=== PATIENT | male | born 1970 | race Caucasian/White ===

== ENCOUNTER → 2017-05-23 08:20 | Outpatient (CLI) | payer BC, SELFPAY | PROVIDERS: Family Provider Family Medicine; PCP Family Medicine; Visit Provider Family Medicine | DX: L02.415 Cutaneous abscess of right lower limb (principal); Z86.14 Personal history of Methicillin resistant Staphylococcus aureus infection | CPT/HCPCS: 87070; 87077; 87186; 87205 ==

== ENCOUNTER 2023-03-25 07:27 | Day surgery (SDC) | payer BC, SELFPAY ==
--- OUTSIDE RECORDS SUMMARY | 2023-03-25 07:32 | XMS RPT_ITS | CCD ---
Author Name Unknown Address [address] [place] [address] Organization [facility] Care Team Providers Care Oral Surgeon Name Role Phone Jayne COELLO, Minda Guido Unavailable Unavailable Jayne COELLO, Minda Guido Unavailable Unavailable Roof PAINT STOCK CLERK, Alexandre Bernard Unavailable Yesenia Mccormick Unavailable Unavailable Melquiades Byers Unavailable Unavailable Ivanauskas, Saulius Unavailable Unavailable Elinor, Saulius Unavailable Unavailable Ty Tierney Unavailable Unavailable Ty Tierney Unavailable Unavailable Zeeshan Melquiades A Unavailable Unavailable Allergies Allergy Classification Reported Allergen(s) Allergy Type Date of Onset Reaction(s) Facility (4 sources) bee pollen; Translations: [POLLEN] allergy to substance 5 nasal stuffiness [facility] Work Phone: (1 source) No Known Medication Allergies; Translations: [No Known Medication Allergies] Propensity to adverse reactions to drug (disorder) [facility] Repository Medications Completed/Discontinued Medications Medication Drug Class(es) Dates Sig (Normalized) Sig (Original) ASPIRIN-ACETAMINO PHEN-CAFFEINE (4 sources) Nonsteroidal Anti-inflammatory Drug, Central Nervous System Stimulant, Methylxanthine Start: 06-30-2014 EXCEDRIN MIGRAINE 250-250-65 MG TABS As needed ASPIRIN-ACETAMINOP HEN-CAFFEINE [id number] Minda Godoy RN Problems Problem Classification Problem Date Documented Date Episodic/Chronic Nonspecific chest pain (4 sources) Chest pain, unspecified; Translations: [Chest pain, unspecified] Onset: 06-30-2014 06-30-2014 Episodic Other circulatory disease (4 sources) Electrocardiogram abnormal; Translations: [Abnormal electrocardiogram [ECG] [EKG]] Onset: 06-30-2014 06-30-2014 Episodic Other nutritional; endocrine; and metabolic disorders (4 sources) Body mass index (BMI) 26.0-26.9, adult; Translations: [Body mass index (BMI) 26.0-26.9, adult] Onset: 06-30-2014 06-30-2014 Episodic Unclassified (8 sources) Family history of sudden ; Translations: [Family history of ischemic heart disease and other diseases of the circulatory system] 06-30-2014 Episodic Results Test Name Value Interpretation Reference Range Facil ity Vital Signs Date Time Vital Sign Value Performing Clinician Vin lity 10-12-2016 08:03-0400 BMI (Body Mass Index) 26.25 kg/m2 Alexandre Bashir OROPE[facility] Work Phone: 10-12-2016 08:03-0400 BP Diastolic 70 mm[Hg] Alexandre Bashir OROPEZA [facility] Work Phone: 10-12-2016 08:03-0400 BP Systolic 110 mm[Hg] Alexandre Bashir OROPEZA [facility] Work Phone: 10-12-2016 08:03-0400 Height 182.88 cm Alexandre Bashir OROPEZA [facility] Work Phone: 10-12-2016 08:03-0400 Pulse (Heart Rate) 64 /min Alexandre Bashir OROPEZA [facility] Work Phone: 10-12-2016 08:03-0400 Respiratory Rate 20 /min Alexandre Bashir OROPEZA [facility] Work Phone: 10-12-2016 08:03-0400 Weight 87.82 kg Alexandre Bashir PAINT STOCK CLERK [facility] Work Phone: 06-30-2014 14:25-0400 BMI (Body Mass Index) 26.53 kg/m2 Yesenia DeFinolga [facility] Work Phone: 06-30-2014 14:25-0400 BP Diastolic 60 mm[Hg] Harumi DeFinis [facility] Work Phone: 06-30-2014 14:25-0400 BP Systolic 100 mm[Hg] Harumi DeFinis [facility] Work Phone: 06-30-2014 14:250400 BSA (Body Surface Area) 2.11 m2 [facility] Work Phone: 06-30-2014 14:25-0400 Height 182.88 cm Tapad [facility] Work Phone: 06-30-2014 14:25-0400 Pulse (Heart Rate) 64 /min HarAras [facility] Work Phone: 06-30-2014 14:25-0400 Respiratory Rate 20 /min HarAras [facility] Work Phone: 06-30-2014 14:25-0400 Weight 88.72 kg [facility] Work Phone: Encounters Encounter Date Encounter Type Care Provider Facility Start: 12-10-2016 End: 01-21-2017 Ambulatory Ty Tierney Facility:[facility] Start: 09-19-2016 End: 09-19-2016 Emergency department patient visit Melquiades Byers Facility:[facility] Procedures Date Procedure Procedure Detail Performing Clinician Start: 10-12-2016 End: 10-19-2016 Nuclear stress test -exercise Alexandre Camejo NP Work Phone: Start: 06-30-2014 End: 07-01-2014 Documentation of current medications Miguel Tran MD Start: 06-30-2014 End: 06-30-2014 Follow Up Appt Other Miguel Tran MD Start: 06-30-2014 End: 07-13-2014 Stress Echocardiogram (treadmill) Miguel Tran MD Plan of Treatment Date Care Activity Detail Author Start: 10-12-2016 End: 10-12-2016 Appointment Appointment [facility] Work Phone: Start: 10-12-2016 End: 10-12-2016 Nuclear stress test -exercise Nuclear stress test -exercise [facility] Work Phone: Start: 06-30-2014 End: 06-30-2014 Follow Up Appt Other Follow Up Appt Other [facility] Work Phone: Start: 06-30-2014 End: 06-30-2014 Stress Echocardiogram (treadmill) Stress Echocardiogram (treadmill) [facility] Work Phone: Payers Date Payer Category Payer Unknown Summary Purpose Family History No Family History Records FoundNo Family History Records Found Advance Directives No Advanced Directives Records FoundNo Advanced Directives Records Found Additional Source Comments (unrecognized sect ion and content) No Status Records FoundNo Status Records Found INFORMATION SOURCE (unrecogn ized section and content) DATE CREATED AUTHOR AUTHOR'S ORGANIZ ATION 01/11/2021 [facility] FOR RECORDS PERTAINING TO PATIENTS WHO ARE OR HAVE BEEN ENROLLED IN A CHEMICAL DEPENDENCY/SUBSTANCEABUSE PROGRAM, SOME INFORMATION MAY BE OMITTED. This clinical summary was aggregated from multiple sources. Caution should be exercised in using it in the provision of clinical care. This summary normalizes information from multiple sources, and as a consequence, information in this document may materially change the coding, format and clinical context of patient data. In addition, data may be omitted in some cases. CLINICAL DECISIONS SHOULD BE BASED ON THE PRIMARY CLINICAL RECORDS. [facility]. provides no warranty or guarantee of the accuracy or completeness of information in this document.
[2023-03-25 07:47] VITALS: BP 114/87; PULSE 72; RESP 18; TEMP 36.3; O2SAT 97; BMI 26.7
[2023-03-25] MEDS: Lactated Ringers 1,000 ML 15 ML IV (07:59)
--- NOTE | 2023-03-25 08:01 | PCM.HP.STD ---
[facility] - General General Date of Admission: 03/25/23 Date of Service: 03/25/23 Chief Complaint: Screening colonoscopy [facility] Narrative ALYSIA TIERNEY, is a 52 M who presents today for screening colonoscopy. He has not had abdominal pain. He does not have any chest pain or shortness of breath. He has never had a colonoscopy in the past. He has no specific past medical history does not take any medicines on a daily basis. He has no family history of colon cancer or colon polyps. FORMERLY [facility], 1928–1983 Medical History (Updated 03/21/23 @ 09:52 by Connie Skinner) Alcohol use Former smoker History of echocardiogram History of stress test Wears glasses Home Medications NK 01/03/23 [History Last Taken Unknown] Allergy/AdvReac Type Severity Reaction Status Date / Time No Known Allergies Allergy Verified 03/25/23 07:46 Surgical History (Updated 03/21/23 @ 09:52 by Connie Skinner) Hx of vasectomy Social History household members: spouse current occupational status: employed Smoking Status: Former smoker ROS Review of Systems ROS Unobtainable: other Constitutional Constitutional: Denies fatigue, fever(s), poor appetite, weight gain or weight loss ENT HEENT: Denies mouth lesions Cardiovascular Cardiovascular: Denies abdominal bloating, abdominal edema or abdominal pain Respiratory/Chest Respiratory/Chest: Denies change in mental status, change in phlegm color, chest congestion or chest tightness Gastrointestinal Gastrointestinal: Denies belching, bloating, change in bowel habits, change in stool character, chewing difficulty, coffee ground emesis, constipation, cramping, diarrhea, dyspepsia, dysphagia, early satiety, excessive flatus, fecal incontinence, heartburn, hematemesis, hematochezia, hemorrhoids, loose stools, melena, nausea, odynophagia, rectal bleeding, tenesmus, vomiting or weight changes Genitourinary Genitourinary: Denies abdominal discomfort, burning urination or itching Musculoskeletal Musculoskeletal: Reports as per HPI; Denies muscle weakness or myalgias Integumentary Integumentary: Denies jaundice Neurologic Neurologic: Denies lack of coordination or weakness Psychiatric Psychiatric: Denies confusion, depression, memory loss, mood swings, paranoia or suicidal ideation Endocrine Endocrinology: Denies systems reviewed and no addt'l complaints, except as documented Hematologic/Lymphatic Hematologic/Lymphatic: Denies anemia, easy bleeding, easy bruising or lymphadenopathy Allergic/Immunologic Allergic/Immunologic: Denies systems reviewed and no addt'l complaints, except as documented Vital Signs Vital Signs Vital Signs: 03/25/23 07:47 03/25/23 07:47 Temperature 97.3 F L Temperature Source Temporal Pulse Rate 72 Respiratory Rate 18 Respiratory Pattern Normal Blood Pressure 114/87 H Blood Pressure Mean 96 Blood Pressure Source Monitor Blood Pressure Position Semi-Fowlers Blood Pressure Location Right Arm Pulse Ox 97 Oxygen Delivery Method Room Air Weight Weight: 191 lb 9.307 oz Body Mass Index (BMI) 26.7 Physical Exam Const alert General Appearance: cooperative Orientation / Consciousness: oriented to person HEENT hearing grossly normal bilaterally Head and Scalp: normal to inspection Face and Sinus: face symmetric Nose: external nose normal Mouth: oral and palatal mucosa normal Eyes conjunctivae normal General Eye: normal appearance of both eyes Neck full ROM General: normal visual inspection Lymph Lymphatic: no lymphadenopathy noted Chest inspection of chest normal and palpation of chest normal Chest: symmetrical chest wall rise Resp normal respiratory effort Effort and Inspection: able to speak in complete sentences Cardio regular rate GI non-distended Percussion: normal to percussion Rectal Exam: deferred Neuro Speech: speech normal Gait (Neuro): normal gait Assessment & Plan Assessment/Plan (1) Encounter for screening for malignant neoplasm of colon: PLAN: He was explained alternatives, risk, benefits including not withstanding bleeding, infection, sepsis, perforation, need for emergent urgent . He will have an ASA of 2.
--- NOTE | 2023-03-25 08:30 | COLBX_PTH ---
PATHOLOGY RESULTS PATIENT: ALYSIA TIERNEY LOC: EN U#:[id number] AGE/SX: 52/M ROOM: RE03/25/[address]: Dr. Oziel Jason DO : 1970 BED: DIS: 03/25/2023 SPEC #: [id number] RECD: 03/25/23 11:49 STATUS: JOSE ANGEL #: [id number] MANFRED: 03/25/23 08:[address]: Oziel Jason DEPT: SURGICAL PATHOLOGY RECD BY: Jossie Man ENTERED: 03/25/23 11:49 SP TYPE: COLON BX OTHR DR: Dr. Melquiades Byers MD Tissues: Sigmoid colon biopsy Procedures: Surgery Specimen Level IV HEADER OPERATION: Colonoscopy - open access with polypectomy PRE-OP DIAGNOSIS: Screening TISSUE SUBMITTED: Sigmoid polyp MICROSCOPIC DIAGNOSIS Sigmoid colon polyp, biopsy: Fragments of tubular adenoma. AM:edmond 03/26/2023 MICROSCOPIC DESCRIPTION Slides are reviewed. GROSS DESCRIPTION Received in fixative is one container labeled with the patient's name and designated sigmoid polyp. The specimen consists of two irregular fragments of light coyle soft tissue that in aggregate measure 0.5 x 0.3 x 0.1 cm. The specimen is totally submitted in one cassette. / SJ:edmond 03/25/2023 TC:5 CPT: 27261
[2023-03-25 09:20] VITALS: BP 107/53; BP 114/87; PULSE 71; RESP 18; TEMP 36.2; O2SAT 97
--- NOTE | 2023-03-25 09:21 | OP.CCLET_ITS ---
03/25/2023 Melquiades Byers [address] [place] [address] Re : Colonoscopy procedure for Cosmo Saravia Dear Dr. Byers This procedure was performed on Saturday, March 25, 2023. My impressions and recommendations are as follows: Impressions : - One 8 mm polyp in the sigmoid colon, removed with a hot snare. Resected and retrieved. - The examination was otherwise normal on direct and retroflexion views. Recommendations : - Discharge patient to home. - Resume previous diet. - Continue present medications. - Await pathology results. - Repeat colonoscopy in 5 years for surveillance. My findings are described in the full procedure note, which is enclosed. If I can be of further assistance, please feel free to contact me at . Sincerely, Oziel Friend, 03/25/2023 9:20:26 AM This report has been signed electronically.
--- NOTE | 2023-03-25 09:21 | OP.COLON_ITS ---
Patient Name: Cosmo Saravia Procedure Date: 03/25/2023 7:28 AM Date of : 1970 Age: 52 Procedure: Colonoscopy Indications: Screening for colorectal malignant neoplasm Providers: Oziel Jason DO Medicines: Monitored Anesthesia Care Patient Profile: This is a 52 year old male. Refer to note in patient chart for documentation of history and physical. Last Colonoscopy: none. The patient's first colonoscopy is today. Complications: No immediate complications. Procedure: Pre-Anesthesia Assessment: - Prior to the procedure, a History and Physical was performed, and patient medications and allergies were reviewed. The patient is competent. The risks and benefits of the procedure and the sedation options and risks were discussed with the patient. All questions were answered and informed consent was obtained. Patient identification and proposed procedure were verified by the physician in the pre-procedure area. Mental Status Examination: alert and oriented. Airway Examination: normal oropharyngeal airway and neck mobility. Respiratory Examination: clear to auscultation. CV Examination: normal. Prophylactic Antibiotics: The patient does not require prophylactic antibiotics. Prior Anticoagulants: The patient has taken no anticoagulant or antiplatelet agents. ASA Grade Assessment: II - A patient with mild systemic disease. After reviewing the risks and benefits, the patient was deemed in satisfactory condition to undergo the procedure. The anesthesia plan was to use monitored anesthesia care (MAC). Immediately prior to administration of medications, the patient was re-assessed for adequacy to receive sedatives. The heart rate, respiratory rate, oxygen saturations, blood pressure, adequacy of pulmonary ventilation, and response to care were monitored throughout the procedure. The physical status of the patient was re-assessed after the procedure. After I obtained informed consent, the scope was passed under direct vision. Throughout the procedure, the patient's blood pressure, pulse, and oxygen saturations were monitored continuously. The Colonoscope was introduced through the anus and advanced to the cecum, identified by appendiceal orifice and ileocecal valve. The colonoscopy was performed without difficulty. The patient tolerated the procedure well. The quality of the bowel preparation was adequate. The ileocecal valve, appendiceal orifice, and rectum were photographed. Scope In: 9:00:55 AM Scope Withdrawal Time 0 hours 10 minutes 22 seconds Scope Out: 9:14:13 AM Total Procedure Duration Time 0 hours 13 minutes 18 seconds Findings: The perianal and digital rectal examinations were normal. An 8 mm polyp was found in the sigmoid colon. The polyp was sessile. The polyp was removed with a hot snare. Resection and retrieval were complete. Verification of patient identification for the specimen was done. Estimated blood loss was minimal. The exam was otherwise without abnormality on direct and retroflexion views. Impression: - One 8 mm polyp in the sigmoid colon, removed with a hot snare. Resected and retrieved. - The examination was otherwise normal on direct and retroflexion views. Recommendation: - Discharge patient to home. - Resume previous diet. - Continue present medications. - Await pathology results. - Repeat colonoscopy in 5 years for surveillance. Procedure Code(s): --- Professional --- 40271, Colonoscopy, flexible; with removal of tumor(s), polyp(s), or other lesion(s) by snare technique CPT copyright 2021 [employer]. All rights reserved. The codes documented in this report are preliminary and upon oncology specialist review may be revised to meet current compliance requirements. Oziel Jason DO 03/25/2023 9:20:26 AM This report has been signed electronically. Number of Addenda: 0 Note Initiated On: 03/25/2023 7:28 AM
[2023-03-25 09:25] VITALS: BP 108/79; BP 114/87; PULSE 72; RESP 18; O2SAT 9
[2023-03-25 09:30] VITALS: BP 114/87; BP 115/79; PULSE 70; RESP 18; TEMP 36.2; O2SAT 96
[2023-03-25 09:44] VITALS: BP 114/87
== END 2023-03-25 09:45 | disposition home or self-care (01) ==
LOC: EN 07:30 → AC 07:31
PROVIDERS: PCP Family Medicine; Referring Provider Family Medicine; Visit Provider Internal Medicine Gastroenterology
PROC: 0DJD8ZZ Inspection of Lower Intestinal Tract, Via Natural or Artificial Opening Endoscopic (ICD-10-PCS; CPT 45378; principal; 2023-03-25 08:25)
DX: Z12.11 Encounter for screening for malignant neoplasm of colon (principal); D12.5 Benign neoplasm of sigmoid colon; Z87.891 Personal history of nicotine dependence
CPT/HCPCS: 45385; 88305; J7120; J2405

== ENCOUNTER → 2024-11-23 | Outpatient (CLI) | payer BC, SELFPAY ==
[2024-11-23 19:03] LABS: AST(SGOT) 25 U/L (<=37); Alanine Aminotransfer ALT/SGPT 38 U/L (<=46); Albumin, Serum 4.5 g/dL (3.5-5.0); Alkaline Phosphatase 63 U/L (40-129); Anion Gap 12 (5-15); BUN 16 mg/dL (4-19); BUN/Creat Ratio 17.7 RATIO (10-20); Calcium,Total 9.7 mg/dL (7.6-11.0); Carbon Dioxide 22.7 mmol/L (21.0-32.0); Chloride 106 mmol/L (98-108); Globulin 2.7 g/dL (2.2-4.2); Glucose 89 mg/dL (70-99); Potassium 3.9 mmol/L (3.3-5.1)
[2024-11-23 19:12] LABS: CRP < 3.00 mg/L (0.0-3.0)
[2024-11-23 20:29] LABS: Hematocrit 43.5 % (40-54); Hemoglobin 14.8 g/dL (13.0-16.5); Immature Granulocytes Count 0.040 X10^3/uL (0.0-0.0); Mean Corp Hgb Conc 34.0 g/dL (32-36); Mean Corpuscular Volume 97.5 fL (80-94); Mean Platelet Vol. 10.6 fl (6.2-12.0); NRBC Flagged by Analyzer 0 % (0-5); Platelet Count 318 K/mm3 (150-450); RBC Distribution Width CV 12.1 % (11.6-14.6); RBC Distribution Width SD 43.5 fl (35.1-43.9); Red Blood Count 4.46 M/mm3 (4.6-6.2); White Blood Count 6.7 K/mm3 (4.4-11.0)
--- OUTSIDE RECORDS SUMMARY | 2024-11-23 21:47 | XMS RPT_ITS | CCD ---
Author Organization [facility] ion Partnership GEOGRAPHY HEAD [facility] Care Team Providers Care Personal Property Appraiser Name Role Phone Jayne COELLO, Minda Guido Unavailable Unavailable Jayne COELLO, Minda Guido Unavailable Unavailable Bashir TELE MARKETING EXECUTIVE, Kayleigh Bernard Unavailable Yesenia Mccormick Unavailable Unavailable Byers, Melquiades A Unavailable Unavailable Ivanauskas, Saulius Unavailable Unavailable Ivanauskas, Saulius Unavailable Unavailable Ty Tierney Unavailable Unavailable Ty Tierney Unavailable Unavailable Byers, Melquiades A Unavailable Unavailable Lucia Isabel Attending Unavailable Byers, Melquiades Primary Care Unavailable FriendOziel Consulting Unavailable Friend, Oziel Attending Unavailable Zeeshan, Melquiades Primary Care Unavailable Melquiades Byers Referring Unavailable Friend, Oziel Attending Unavailable Zeeshan, Melquiades Primary Care Unavailable Zeeshan Melquiades Referring Unavailable Allergies Allergy Classification Reported Allergen(s) Allergy Type Date of Onset Reaction(s) Facility (4 sources) bee pollen; Translations: [POLLEN] allergy to substance 5 nasal stuffiness [facility] Work Phone: (1 source) No Known Medication Allergies; Translations: [No Known Medication Allergies] Propensity to adverse reactions to drug (disorder) [facility] Repository Medications Completed/Discontinued Medications Medication Drug Class(es) Dates Sig (Normalized) Sig (Original) ASPIRIN-ACETAMINO PHEN-CAFFEINE (4 sources) Nonsteroidal Anti-inflammatory Drug, Central Nervous System Stimulant, Methylxanthine Start: 06-30-2014 EXCEDRIN MIGRAINE 250-250-65 MG TABS As needed ASPIRIN-ACETAMINOP HEN-CAFFEINE [id number] Minda Godoy RN Problems Active Problems Problem Classification Problem Date Documented Da te Episodic/Chronic Other screening for suspected conditions (not mental disorders or infectious disease) (2 sources) Encounter for screening for malignant neoplasm of colon; Translations: [Encounter for screening for malignant neoplasm of colon] Onset: 06-04-2023 Episodic Past or Other Problems Problem Classification Problem Date Documented Date [...] Results Test Name Value Interpretation Reference Range Facility Colonoscopy Reporton 024 Colonoscopy Report [facility] Medical Records Department [address] [place] [address] Colonoscopy Report MR#: [id number] Acct: [id number] Name: ALYSIA SARAVIA Rep #: [id number] : 1970 52 From: Oziel Jason DO PCP: Dr. Melquiades Byers MD Status:[facility] Patient Name: Alysia Saravia Procedure Date: 03/25/2023 7:28 AM Date of : 1970 Age: 52 Procedure: Colonoscopy Indications: Screening for colorectal malignant neoplasm Providers: Oziel Jason DO Medicines: Monitored Anesthesia Care Patient Profile: This is a 52 year old male. Refer to note in patient chart for documentation of history and physical. Last Colonoscopy: none. The patient's first colonoscopy is today. Complications: No immediate complications. Procedure: Pre-Anesthesia Assessment: - Prior to the procedure, a History and Physical was performed, and patient medications and allergies were reviewed. The patient is competent. The risks and benefits of the procedure and the sedation options and risks were discussed with the patient. All questions were answered and informed consent was obtained. Patient identification and proposed procedure were verified by the physician in the pre-procedure area. Mental Status Examination: alert and oriented. Airway Examination: normal oropharyngeal airway and neck mobility. Respiratory Examination: clear to auscultation. CV Examination: normal. Prophylactic Antibiotics: The patient does not require prophylactic antibiotics. Prior Anticoagulants: The patient has taken no anticoagulant or antiplatelet agents. ASA Grade Assessment: II - A patient with mild systemic disease. After reviewing the risks and benefits, the patient was deemed in satisfactory condition to undergo the procedure. The anesthesia plan was to use monitored anesthesia care (MAC). Immediately prior to administration of medications, the patient was re-assessed for adequacy to receive sedatives. The heart rate, respiratory rate, oxygen saturations, blood pressure, adequacy of pulmonary ventilation, and response to care were monitored throughout the procedure. The physical status of the patient was re-assessed after the procedure. After I obtained informed consent, the scope was passed under direct vision. Throughout the procedure, the patient's blood pressure, pulse, and oxygen saturations were monitored continuously. The Colonoscope was introduced through the anus and advanced to the cecum, identified by appendiceal orifice and ileocecal valve. The colonoscopy was performed without difficulty. The patient tolerated the procedure well. The quality of the bowel preparation was adequate. The ileocecal valve, appendiceal orifice, and rectum were photographed. Scope In: 9:00:55 AM Scope Withdrawal Time 0 hours 10 minutes 22 seconds Scope Out: 9:14:13 AM Total Procedure Duration Time 0 hours 13 minutes 18 seconds Findings: The perianal and digital rectal examinations were normal. An 8 mm polyp was found in the sigmoid colon. The polyp was sessile. The polyp was removed with a hot snare. Resection and retrieval were complete. Verification of patient identification for the specimen was done. Estimated blood loss was minimal. The exam was otherwise without abnormality on direct and retroflexion views. Impression: - One 8 mm polyp in the sigmoid colon, removed with a hot snare. Resected and retrieved. - The examination was otherwise normal on direct and retroflexion views. Recommendation: - Discharge patient to home. - Resume previous diet. - Continue present medications. - Await pathology results. - Repeat colonoscopy in 5 years for surveillance. Procedure Code(s): --- Professional --- 01129, Colonoscopy, flexible; with removal of tumor(s), polyp(s), or other lesion(s) by snare technique CPT copyright 2021 [employer]. All rights reserved. The codes documented in this report are preliminary and upon vp genetic review may be revised to meet current compliance requirements. Oziel Jason DO 03/25/2023 9:20:26 AM This report has been signed electronically. Number of Addenda: 0 Note Initiated On: 03/25/2023 7:28 AM 03/25/23919 Date Oziel Jason DO Cosigner Signature: Date (if indicated) CC: Dr. Melquiades Byers MD; Oziel Jason DO Date Dictated: 03/25/23727 Date Transcribed: Knife Setter: RF Signed Normal [facility] Surgery Specimen Level Citlaly 03-25-2023 Surgery Specimen Level IV Patient Age/Sex Location Account Attending Physician ALYSIA SARAVIA 52/M EN [id number] Oziel Jason DO Specimen: [id number] Received: 03/25/23-114 Status: JOSE Edouard Num: [id number] Spec Type: COLON BX Subm Dr: Oziel Jason DO HEADER OPERATION: Colonoscopy - open access with polypectomy PRE-OP DIAGNOSIS: Screening TISSUE SUBMITTED: Sigmoid polyp MICROSCOPIC DIAGNOSIS Sigmoid colon polyp, biopsy: Fragments of tubular adenoma. AM:edmond 03/26/2023 MICROSCOPIC DESCRIPTION Slides are reviewed. GROSS DESCRIPTION Received in fixative is one container labeled with the patient's name and designated sigmoid polyp. The specimen consists of two irregular fragments of light coyle soft tissue that in aggregate measure 0.5 x 0.3 x 0.1 cm. The specimen is totally submitted in one cassette. / ALEXANDRA:edmond 03/25/2023 TC:5 CPT: 38488 Patient Age/Sex Location Account Attending Physician ALYSIA SARAVIA 52/M EN [id number] Oziel Jason, DO Signed (signature on file) Dr. Pako Rivero DO 03/26/23 1224 [facility] Comment on above: Performed By: #### P SUIV #### [facility] Laboratory [address] [place], [address] HAND MIN 3 VIEWSon 1 HAND MIN 3 VIEWS Patient Name: ALYSIA SARAVIA STUDY: HAND MIN 3 VIEWS; 12/20/2020 11:32 am INDICATION: Unspecified soft tissue disorder related to use, overuse and pressure, left hand BWC. COMPARISON: No priors ACCESSION NUMBER(S): [id number] ORDERING CLINICIAN: KAYLEIGH BREEN FINDINGS: Left hand, three views There is moderate joint space narrowing with osteophytosis and sclerosis in the 2nd, 3rd and 4th metacarpophalangeal joints. Mild degenerative changes in the 5th carpometacarpal joint as well. There is no fracture. There is no erosion. There is no dislocation. 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 Electronically signed by: PER CORLEY MD [facility] Office Visit: Jonathan 10-13-19 17 Documentation of current medications (procedure) Done Invalid Interpretation Code [facility] Work Phone: Fall risk assessment No Invalid Interpretation Code [facility] Work Phone: [place] 09-21-2016 INR Coag RelTime (Bld) Final Report: Light growth of Methicillin-Resistant Staphylococcus aureusORGANISM: MRSAGram Stain Report: Rare Gram Positive CocciSUSCEPTIBILITY RESULTSAntibiotic AUNDREA Dilutn AUNDREA InterpORGANISM: MRSAAmox/Cla : >4/2 R*Amp : >8 R*Amp/Sul : >16/8 R*Ceftri : 32 R*Cipro : >2 RClinda : <=0.5 SEryth : >4 RGent : <=4 SICd : <=4/0.5 NegLevo : >4 RLine : 2 SOx : >2 RPen : >8 R*Rif : <=1 STetra : <=4 SSXT : <=0.5/9.5 SVanc : >1 [facility]. [facility] Comment on above: Performed By: #### 2 [id number] ####[facility] [address] [place] [address] Office Visiton 06-30-2014 cardiac risk group B Invalid Interpretation Code [facility] Work Phone: [phone] Documentation of current medications (procedure) Done Invalid Interpretation Code [facility] Work Phone: [phone] General cardiovascular disease 10Y risk [#] Ragley.D'Agost koki Not enough information Invalid Interpretation Code [facility] Work Phone: [phone] Tobacco use [facility] Former smoker Invalid Interpretation Code [facility] Work Phone: [phone] Vital Signs Date Time Vital Sign Value Performing Clinician Faci corey 10-12-2016 08:03-0400 BMI (Body Mass Index) 26.25 kg/m2 Kayleigh Camejo NP [facility] Work Phone: 10-12-2016 08:03-0400 BP Diastolic 70 mm[Hg] Kayleigh Camejo TELE MARKETING EXECUTIVE [facility] Work Phone: 10-12-2016 08:03-0400 BP Systolic 110 mm[Hg] Kayleigh Camejo TELE MARKETING EXECUTIVE [facility] Work Phone: 10-12-2016 08:03-0400 Height 182.88 cm Kayleigh Camejo TELE MARKETING EXECUTIVE [facility] Work Phone: 10-12-2016 08:03-0400 Pulse (Heart Rate) 64 /min Kayleigh Camejo NP [facility] Work Phone: 10-12-2016 08:03-0400 Respiratory Rate 20 /min Kayleigh Camejo NP [facility] Work Phone: 10-12-2016 08:03-0400 Weight 87.82 kg Kayleigh Camejo TELE MARKETING EXECUTIVE [facility] Work Phone: 06-30-2014 14:25-0400 BMI (Body Mass Index) 26.53 kg/m2 Harumi DeFinis [facility] Work Phone: 06-30-2014 14:25-0400 BP Diastolic 60 mm[Hg] Harumi DeFinis [facility] Work Phone: 06-30-2014 14:25-0400 BP Systolic 100 mm[Hg] Harumi DeFinis [facility] Work Phone: 06-30-2014 14:25-0400 BSA (Body Surface Area) 2.11 m2 Yesenia [facility] Work Phone: 06-30-2014 14:25-0400 Height 182.88 cm Yesenia [facility] Work Phone: 06-30-2014 14:25-0400 Pulse (Heart Rate) 64 /min Harumi [facility] Work Phone: 06-30-2014 14:25-0400 Respiratory Rate 20 /min Harelly [facility] Work Phone: 06-30-2014 14:25-0400 Weight 88.72 kg Yesenia [facility] [employer] Work Phone: Encounters Encounter Date Encounter Type Care Provider Facility Start: 03-25-2023 End: 03-25-2023 ambulatory Oziel Jason Facility:[facility] Start: 01-03-2023 ambulatory Lucia Litchfield Facility:[facility] Start: 12-10-2016 End: 01-21-2017 Ambulatory Ty Brown [facility] Facility:[facility] Start: 09-19-2016 End: 09-19-2016 Emergency department patient visit Melquiades Byers Facility:[facility] Procedures Date Procedure Procedure Detail Performing Clinician Start: 10-12-2016 End: 10-19-2016 Nuclear stress test -exercise Kayleigh Camejo NP Work Phone: Start: 06-30-2014 End: 07-01-2014 Documentation of current medications Miguel Tran MD Start: 06-30-2014 End: 06-30-2014 Follow Up Appt Other Miguel Tran MD Start: 06-30-2014 End: 07-13-2014 Stress Echocardiogram (treadmill) Miguel Tran MD Plan of Treatment Date Care Activity Detail Author Start: 10-12-2016 End: 10-12-2016 Appointment Appointment [employer] Work Phone: Start: 10-12-2016 End: 10-12-2016 Nuclear stress test -exercise Nuclear stress test -exercise [facility] Phone: Start: 06-30-2014 End: 06-30-2014 Follow Up Appt Other Follow Up Appt Other [facility] Phone: Start: 06-30-2014 End: 06-30-2014 Stress Echocardiogram (treadmill) Stress Echocardiogram (treadmill) [facility] Phone: Payers Date Payer Category Payer Self-pay 2023 Unknown [id number] 2016 Unknown Unknown [id number] Unknown [id number] Unknown [id number] Clinical Note 03-25-2023 Note Date & Type Note Facility 03-25-2023 Note [facility] Medical Records Department [address] [place] [address] History Physical Exam 03/25/23 0801 MR#: [id number] Acct: [id number] Name: ALYSIA SARAVIA Rep #: [id number] : 1970 52 From: Oziel Friend PCP: Dr. Melquiades Byers MD Status:[facility] Location: [place] [address] HPI - General General Date of Admission: 03/25/23 Date of Service: 03/25/23 Chief Complaint: Screening colonoscopy HPI Narrative ALYSIA SARAVIA, is a 52 M who presents today for screening colonoscopy. He has not had abdominal pain. He does not have any chest pain or shortness of breath. He has never had a colonoscopy in the past. He has no specific past medical history does not take any medicines on a daily basis. He has no family history of colon cancer or colon polyps. [facility] Medical History (Updated 03/21/23 @ 09:52 by Connie Skinner) Alcohol use Former smoker History of echocardiogram History of stress test Wears glasses Home Medications NK 01/03/23 [History Last Taken Unknown] Allergy/AdvReac Type Severity Reaction Status Date / Time No Known Allergies Allergy Verified 03/25/23 07:46 Surgical History (Updated 03/21/23 @ 09:52 by Connie Skinner) Hx of vasectomy Social History household members: spouse current occupational status: employed Smoking Status: Former smoker ROS Review of Systems ROS Unobtainable: other Constitutional Constitutional: Denies fatigue, fever(s), poor appetite, weight gain or weight loss ENT HEENT: Denies mouth lesions Cardiovascular Cardiovascular: Denies abdominal bloating, abdominal edema or abdominal pain Respiratory/Chest Respiratory/Chest: Denies change in mental status, change in phlegm color, chest congestion or chest tightness Gastrointestinal Gastrointestinal: Denies belching, bloating, change in bowel habits, change in stool character, chewing difficulty, coffee ground emesis, constipation, cramping, diarrhea, dyspepsia, dysphagia, early satiety, excessive flatus, fecal incontinence, heartburn, hematemesis, hematochezia, hemorrhoids, loose stools, melena, nausea, odynophagia, rectal bleeding, tenesmus, vomiting or weight changes Genitourinary Genitourinary: Denies abdominal discomfort, burning urination or itching Musculoskeletal Musculoskeletal: Reports as per HPI; Denies muscle weakness or myalgias Integumentary Integumentary: Denies jaundice Neurologic Neurologic: Denies lack of coordination or weakness Psychiatric Psychiatric: Denies confusion, depression, memory loss, mood swings, paranoia or suicidal ideation Endocrine Endocrinology: Denies systems reviewed and no addt'l complaints, except as documented Hematologic/Lymphatic Hematologic/Lymphatic: Denies anemia, easy bleeding, easy bruising or lymphadenopathy Allergic/Immunologic Allergic/Immunologic: Denies systems reviewed and no addt'l complaints, except as documented Vital Signs Vital Signs Vital Signs: 03/25/23 07:47 03/25/23 07:47 Temperature 97.3 F L Temperature Source Temporal Pulse Rate 72 Respiratory Rate 18 Respiratory Pattern Normal Blood Pressure 114/87 H Blood Pressure Mean 96 Blood Pressure Source Monitor Blood Pressure Position Semi-Fowlers Blood Pressure Location Right Arm Pulse Ox 97 Oxygen Delivery Method Room Air Weight Weight: 191 lb 9.307 oz Body Mass Index (BMI) 26.7 Physical Exam Const alert General Appearance: cooperative Orientation / Consciousness: oriented to person HEENT hearing grossly normal bilaterally Head and Scalp: normal to inspection Face and Sinus: face symmetric Nose: external nose normal Mouth: oral and palatal mucosa normal Eyes conjunctivae normal General Eye: normal appearance of both eyes Neck full ROM General: normal visual inspection Lymph Lymphatic: no lymphadenopathy noted Chest inspection of chest normal and palpation of chest normal Chest: symmetrical chest wall rise Resp normal respiratory effort Effort and Inspection: able to speak in complete sentences Cardio regular rate GI non-distended Percussion: normal to percussion Rectal Exam: deferred Neuro Speech: speech normal Gait (Neuro): normal gait Assessment Plan Assessment/Plan (1) Encounter for screening for malignant neoplasm of colon: PLAN: He was explained alternatives, risk, benefits including not withstanding bleeding, infection, sepsis, perforation, need for emergent urgent . He will have an ASA of 2. 03/25/23 0802 Cosigner Signature (if applicable): CC: Dr. Melquiades Byers MD; Oziel Jason, Signed [facility] Summary Purpose Family History No Family History Records FoundNo Family History Records FoundNo Family History Records Found Advance Directives No Advanced Directives Records FoundNo Advanced Directives Records FoundNo Advanced Directives Records Found Additional Source Comments (unrecognized sect ion and content) No Status Records FoundNo Status Records FoundNo Status Records Found INFORMATION SOURCE (unrecogn ized section and content) DATE CREATED AUTHOR 09/10/2017 [facility] DATE CREATED AUTHOR AUTHOR'S ORGANIZ ATION 01/11/2021 [facility] DATE CREATED AUTHOR AUTHOR'S ORGANIZ ATION 06/05/2023 [facility] FOR RECORDS PERTAINING TO PATIENTS WHO ARE [...] BE BASED ON THE PRIMARY CLINICAL RECORDS. [facility]. provides no warranty or guarantee of the accuracy or completeness of information in this document.
[2024-11-25 13:08] LABS: ANTINUCLEAR ANTIBODIES DIRECT Negative (Negative)
== END | disposition home or self-care (01) ==
LOC: MFPLAB 14:51
PROVIDERS: PCP Family Medicine; Visit Provider Family Medicine
DX: H57.11 Ocular pain, right eye (principal)
CPT/HCPCS: 36415; 80053; 85025; 85652; 86038; 86140